=== PATIENT | female | born 1950 | race Caucasian/White ===

== ENCOUNTER 2017-03-03 07:19 | Emergency (ER) | payer OTHER ==
--- NOTE | 2017-03-03 08:00 | ERNOTE ---
<Douglas Aaron - Last Filed: 03/03/17 07:47> Chest Pain/Cardiac HPI Chief Complaint: Palpitations Time Seen by Provider: 03/03/17 07:40 Source: patient Exam Limitations: no limitations Immunizations: IMMUNIZATION HX Immunizations Up to Date Yes Allergies/Adverse Reactions: Allergies cephalexin monohydrate [From Keflex] Allergy (Mild, Verified 03/03/17 07:33) Hives vancomycin Allergy (Mild, Verified 03/03/17 07:33) Hives carbamazepine [From Tegretol] Adverse Reaction (Mild, Verified 03/03/17 07:33) HYPONATREMIA clindamycin HCl [From Cleocin] Adverse Reaction (Mild, Verified 03/03/17 07:33) rash clindamycin palmitate HCl [From Cleocin] Adverse Reaction (Mild, Verified 07:33) rash clindamycin phosphate [From Cleocin] Adverse Reaction (Mild, Verified 03/03/17 07:33) rash gabapentin [From Neurontin] Adverse Reaction (Mild, Verified 03/03/17 07:33) BLURRED VISION lincomycin HCl [From Lincocin] Adverse Reaction (Mild, Verified 03/03/17 07:33) RASH nortriptyline [Nortriptyline] Adverse Reaction (Mild, Verified 03/03/17 07:33) DOESNT WORK paroxetine HCl [From Paxil] Adverse Reaction (Mild, Verified 03/03/17 07:33) NIGHT SWEATS propoxyphene HCl [From Darvon] Adverse Reaction (Mild, Verified 03/03/17 07:33) hallucinations tetracycline [Tetracycline] Adverse Reaction (Mild, Verified 03/03/17 07:33) RASH wheat Adverse Reaction (Mild, Verified 03/03/17 07:33) GI UPSET cisapride monohydrate [From Propulsid] Adverse Reaction (Unknown, Verified 03/03 07:33) DOESNT WORK esomeprazole magnesium [From Nexium] Adverse Reaction (Unknown, Verified 07:33) DOESNT WORK indomethacin Adverse Reaction (Unknown, Verified 03/03/17 07:33) DOESNT WORK Meclofenamate Sod *RETIRED-01/10/13 [From Meclomen] Adverse Reaction (Unknown, Verified 03/03/17 07:33) DOESNT WORK naproxen [From Naprosyn] Adverse Reaction (Unknown, Verified 03/03/17 07:33) DOESNT WORK nifedipine [From Procardia] Adverse Reaction (Unknown, Verified 03/03/17 07:33) DOESNT WORK pregabalin [From Lyrica] Adverse Reaction (Unknown, Verified 03/03/17 07:33) DOESNT WORK propranolol HCl [From Inderal] Adverse Reaction (Unknown, Verified 03/03/17 07: 33) DOESNT WORK nitroglycerin Adverse Reaction (Verified 03/03/17 07:33) DOESNT WORK Home Medications: HOME MEDICATIONS Calcium/Magnesium/Vit D3 [Calcium 500 mg Tablet] 1 each PO BID 07/19/12 [Last Taken Unknown] Folic Acid 2 mg PO DAILY 07/19/12 [Last Taken Unknown] Methadone HCl [Methadone] 5 - 10 mg PO BID 07/19/12 [Last Taken Unknown] SUMAtriptan SUCCINATE [Imitrex] 100 mg PO DAILY PRN 07/19/12 [Last Taken Unknown ] Topiramate [Topamax] 200 mg PO BID 07/19/12 [Last Taken Unknown] Diltiazem HCl [Diltiazem ER] 240 mg PO DAILY 08/26/12 [Last Taken Unknown] Duloxetine HCl [Cymbalta] 60 mg PO BID 08/26/12 [Last Taken Unknown] Trazodone HCl 100 mg PO HS 08/26/12 [Last Taken Unknown] Aspirin [Aspirin Enteric Coated] 325 mg PO DAILY 01/23/15 [Last Taken Unknown] Baclofen 10 mg PO TID 01/23/15 [Last Taken Unknown] Gabapentin [Neurontin] 600 mg PO HS 01/23/15 [Last Taken Unknown] Oxybutynin Chloride [Ditropan] 5 mg PO DAILY 01/23/15 [Last Taken Unknown] Promethazine HCl 5 ml PO QID 01/23/15 [Last Taken Unknown] clonazePAM [Klonopin] 0.5 mg PO HS 01/23/15 [Last Taken Unknown] Gabapentin [Neurontin] 300 mg PO DAILY 03/03/17 [Last Taken Unknown] Narrative: pt has had palpitations for approx. 24 hours. She has taken her pulse as high as 130. Palpitations have been consistent throughout the night and have kept her up. Timing: constant Severity/Quality: moderate, severe Location: left chest Activities at Onset: none Modifying Factors - Improves: Present: nothing Modifying Factors - Worsens: Present: nothing Review of Systems - Review of Systems Constitutional: Present: recent illness - gastroenteritis last week, weakness, fatigue - after episode. Absent: fever EYE: Present: no symptoms reported ENT: Absent: nose congestion, nasal drainage Respiratory: Absent: shortness of breath Cardiology: Present: See HPI. Absent: edema Gastrointestinal/Abdominal: Present: nausea, vomiting, diarrhea - last week x 24 hours Genitourinary: Present: no symptoms reported Musculoskeletal: Present: no symptoms reported Skin: Present: no symptoms reported Neurological: Present: no symptoms reported Endocrine: Absent: excessive sweating Hematologic/Lymphatic: Present: no symptoms reported - Patient's Past Medical History Patient History - Medical: Anemia, Chronic Pain, Fibromyalgia, GERD, Migraines, Osteoporosis, Seizures, Other Patient History - Cardiac/Respiratory: Hyperlipidemia, Other - PSVT Patient History - Cancer: No Hx of Cancer Patient History - Surgical Procedures: Appendectomy, Hysterectomy, T & A Patient History - Other: None - Social History Living Situations: home Abuse History: No History of abuse Psych History: Hx of Anxiety Alcohol Use: none Drug Use: none - Immunizations Immunizations Up to Date: Yes Physical Exam - Physical Exam General Appearance: Present: wd/wn, alert, mild distress, anxious Head Exam: Present: normal inspection, no evidence of injury Ears, Nose, Throat: Present: normal ENT inspection Neck: Present: normal inspection, nontender Respiratory: Present: no respiratory distress, no accessory muscle use, lungs clear Cardiovascular/Chest: Present: no murmur, normal peripheral pulses, tachycardia Gastrointestinal/Abdominal: Present: normal bowel sounds, nontender, nondistended, soft Back Exam: Present: normal inspection, normal range of motion Extremity Exam: Present: normal inspection, non-tender, normal range of motion, no edema Neurological Exam: Present: alert, oriented, normal mood/affect, no motor/ sensory deficits Skin Exam: Present: normal color, warm/dry Lymphatic Exam: Present: no adenopathy ED Progress - Vital Signs Vital Signs: Vital Signs 03/03/17 03/03/17 03/03/17 07:26 07:38 07:40 Temperature 36.6 C Pulse Rate 111 H 111 H 111 H Respiratory 16 16 Rate Blood Pressure 173/98 168/96 O2 Sat by Pulse 99 100 Oximetry - EKG EKG: supraventricular tachycardia - Sinus tachycardia EKG read: Interp. by or - Progress/Reassessment Chief Complaint: Palpitations - Transfer of Care Physician Sign Out: Douglas Aaron Receiving Physician: Tucker Hernandez Pending Results: Labs, X-ray results Expected Disposition: Discharge Departure Clinical Impression: Palpitations - Departure Disposition: Home Follow Up Needed Condition: Stable Instructions: Palpitations, [id number] Additional Instructions: Rest. Fluids. You have an appointment with Dr Jha March 09 at 1: 45. Return here if you change your mind about the additional testing we discussed or if your condition worsens or changes in any way. Referrals: Jarrod Wing MD [Primary Care Provider] - <Tucker Hernandez - Last Filed: 03/03/17 09:42> Chest Pain/Cardiac HPI Immunizations: IMMUNIZATION HX Immunizations Up to Date Yes ED Progress - Results and Orders Patient's Lab Results:: I have reviewed the patient's lab results. - Vital Signs Patient's Vital Signs:: I have reviewed the patient's vital signs. Vital Signs: Vital Signs 03/03/17 03/03/17 03/03/17 07:26 07:38 07:40 Temperature 36.6 C Pulse Rate 111 H 111 H 111 H Respiratory 16 16 Rate Blood Pressure 173/98 168/96 O2 Sat by Pulse 99 100 Oximetry 03/03/17 03/03/17 03/03/17 08:03 08:33 09:20 Temperature Pulse Rate 94 105 H 98 Respiratory 16 12 17 Rate Blood Pressure 163/80 155/85 156/87 O2 Sat by Pulse 100 99 Oximetry - X-Ray X-Ray #1 X-Ray: chest Interpretation: Interp. by me X-ray Comments: I reviewed official x-ray report - Progress/Reassessment Progress Note-Subjective: 03/03/17 09:35 Patient checked out to me by Dr Aaron at shift change pending CXR report and return of some labs. I reviweed labs and CXR report. I spoke with the patient , she was feeling much improved. She states she is under alot of stress and thinks this may be contributing. She relates head pressure, I offered her a CT but she declines this, understands risks and benefits. i was in the room and her HR was 98 and NSR. Not in a fib or SVT. i offerd to add on some additional testing but she declines this and wishes to go home. I spoke with Dr Jha's office and she will be seen sooner in the office. I discussed warning signs and reasons to return as well as the need for close f/u.
[2017-03-03 08:01] LABS: Hematocrit 31.8 % (37.0-47.0); Hemoglobin 10.2 gm/dL (12.5-16.0); Mean Cell Volume 77.8 fl (78-100); Mean Corpuscular Hemoglobin 24.9 pg (27-31); Mean Corpuscular Hgb Conc 32.1 g/dl (32-36); Mean Platelet Volume 8.3 fl (6.0-9.5); Neutrophil # 4.3 K/mm3 (1.3-6.0); Neutrophil % 80.7 % (42-75.0); Platelet Count 293 K/mm3 (150-450); Red Blood Count 4.09 M/mm3 (4.2-5.4); Red Cell Distribution Width 17.5 % (11.5-14.0); White Blood Count 5.3 K/mm3 (4.0-10.5)
[2017-03-03 08:20] LABS: ALT 30 U/L (19-67); AST 34 U/L (0-48); Albumin * 4.4 gm/dl (3.4-5.0); Alkaline Phosphatase * 81 U/L (50-170); Anion Gap 11.7 mmol/L (6.8-13.8); BUN/Creatinine Ratio 13.4 (9.0-21.6); Bilirubin, Total 0.4 mg/dL (0.0-1.1); Blood Urea Nitrogen 13 mg/dL (3-23); Calcium * 8.6 mg/dL (7.9-10.9); Carbon Dioxide 29.2 mmol/L (24-32.6); Chloride 92 mmol/L (97-106); Glucose * 114 mg/dL (70-110); Potassium 3.9 mmol/L (3.4-4.6); Sodium 129 mmol/L (132-142); Total Protein 7.7 gm/dL (6.2-8.2); Troponin I Less than 0.017 ng/ml (0.00-0.10)
[2017-03-03 09:52] VITALS: BP 144/78
== END 2017-03-03 09:53 | disposition home or self-care (01) ==
LOC: ER 07:19
DX: R00.2 Palpitations (principal); G89.29 Other chronic pain; F32.9 Major depressive disorder, single episode, unspecified

== ENCOUNTER 2017-07-23 08:29 | Emergency (ER) | payer MEDICARE, OTHER ==
[2017-07-23 08:41] VITALS: BP 145/72
--- NOTE | 2017-07-23 09:05 | ERNOTE ---
Medical Problem HPI - Narrative Date of Service: 07/23/17 - General Chief Complaint: Laceration Time Seen by Provider: 07/23/17 08:47 Source: patient Exam Limitations: no limitations - Immun/Allergies/Home Medications Immunizations: IMMUNIZATION HX Immunizations Up to Date Yes Allergies/Adverse Reactions: Allergies cephalexin monohydrate [From Keflex] Allergy (Mild, Verified 07/23/17 08:41) Hives vancomycin Allergy (Mild, Verified 07/23/17 08:41) Hives carbamazepine [From Tegretol] Adverse Reaction (Mild, Verified 07/23/17 08:41) HYPONATREMIA clindamycin HCl [From Cleocin] Adverse Reaction (Mild, Verified 07/23/17 08:41) rash clindamycin palmitate HCl [From Cleocin] Adverse Reaction (Mild, Verified 08:41) rash clindamycin phosphate [From Cleocin] Adverse Reaction (Mild, Verified 07/23/17 08:41) rash gabapentin [From Neurontin] Adverse Reaction (Mild, Verified 07/23/17 08:41) BLURRED VISION lincomycin HCl [From Lincocin] Adverse Reaction (Mild, Verified 07/23/17 08:41) RASH nortriptyline [Nortriptyline] Adverse Reaction (Mild, Verified 07/23/17 08:41) DOESNT WORK paroxetine HCl [From Paxil] Adverse Reaction (Mild, Verified 07/23/17 08:41) NIGHT SWEATS propoxyphene HCl [From Darvon] Adverse Reaction (Mild, Verified 07/23/17 08:41) hallucinations tetracycline [Tetracycline] Adverse Reaction (Mild, Verified 07/23/17 08:41) RASH wheat Adverse Reaction (Mild, Verified 07/23/17 08:41) GI UPSET cisapride monohydrate [From Propulsid] Adverse Reaction (Unknown, Verified 07/23 08:41) DOESNT WORK esomeprazole magnesium [From Nexium] Adverse Reaction (Unknown, Verified 08:41) DOESNT WORK indomethacin Adverse Reaction (Unknown, Verified 07/23/17 08:41) DOESNT WORK Meclofenamate Sod *RETIRED-01/10/13 [From Meclomen] Adverse Reaction (Unknown, Verified 07/23/17 08:41) DOESNT WORK naproxen [From Naprosyn] Adverse Reaction (Unknown, Verified 07/23/17 08:41) DOESNT WORK nifedipine [From Procardia] Adverse Reaction (Unknown, Verified 07/23/17 08:41) DOESNT WORK pregabalin [From Lyrica] Adverse Reaction (Unknown, Verified 07/23/17 08:41) DOESNT WORK propranolol HCl [From Inderal] Adverse Reaction (Unknown, Verified 07/23/17 08: 41) DOESNT WORK nitroglycerin Adverse Reaction (Verified 07/23/17 08:41) DOESNT WORK Home Medications: HOME MEDICATIONS Calcium/Magnesium/Vit D3 [Calcium 500 mg Tablet] 1 each PO BID 07/19/12 [Last Taken Unknown] Folic Acid 2 mg PO DAILY 07/19/12 [Last Taken Unknown] Methadone HCl [Methadone] 5 - 10 mg PO BID 07/19/12 [Last Taken Unknown] SUMAtriptan SUCCINATE [Imitrex] 100 mg PO DAILY PRN 07/19/12 [Last Taken Unknown ] Topiramate [Topamax] 200 mg PO BID 07/19/12 [Last Taken Unknown] Diltiazem HCl [Diltiazem ER] 240 mg PO DAILY 08/26/12 [Last Taken Unknown] Duloxetine HCl [Cymbalta] 60 mg PO BID 08/26/12 [Last Taken Unknown] Trazodone HCl 100 mg PO HS 08/26/12 [Last Taken Unknown] Aspirin [Aspirin Enteric Coated] 325 mg PO DAILY 01/23/15 [Last Taken Unknown] Baclofen 10 mg PO TID 01/23/15 [Last Taken Unknown] Gabapentin [Neurontin] 600 mg PO HS 01/23/15 [Last Taken Unknown] Oxybutynin Chloride [Ditropan] 5 mg PO DAILY 01/23/15 [Last Taken Unknown] Promethazine HCl 5 ml PO QID 01/23/15 [Last Taken Unknown] clonazePAM [Klonopin] 0.5 mg PO HS 01/23/15 [Last Taken Unknown] Gabapentin [Neurontin] 300 mg PO DAILY 03/03/17 [Last Taken Unknown] Doxycycline Hyclate [Morgidox] 100 mg PO BID #20 capsule 07/23/17 [Last Taken Unknown] - History of Present History Narrative: 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 Severity: mild Modifying Factors - (Improves): Present: other - nothing Modifying Factors - (Worsens): Present: other - nothing Review of Systems - Narrative Narrative: unremarkable - Review of Systems Constitutional: Present: See HPI EYE: Present: see HPI, other - laceration above right eye ENT: Present: no symptoms reported Respiratory: Present: no symptoms reported Cardiology: Present: no symptoms reported Gastrointestinal/Abdominal: Present: no symptoms reported Genitourinary: Present: no symptoms reported Musculoskeletal: Present: no symptoms reported Skin: Present: no symptoms reported Neurological: Present: no symptoms reported Endocrine: Present: no symptoms reported Hematologic/Lymphatic: Present: no symptoms reported Psych: Present: no symptoms reported All Other Systems: All systems neg except as marked - Narrative Narrative: unremarkable - Patient's Past Medical History Patient History - Medical: Anemia, Chronic Pain, Fibromyalgia, GERD, Migraines, Osteoporosis, Seizures, Other Patient History - Cardiac/Respiratory: Hyperlipidemia, Other Patient History - Cancer: No Hx of Cancer Patient History - Surgical Procedures: Appendectomy, Hysterectomy, T & A Patient History - Other: None LMP (females 10-50): Menopausal - Family History Family History:: no untoward family reactions to anesthesia, no familial bleeding tendencies, no family history of clotting disorders, no family history of premature - Social History Living Situations: home Abuse History: No History of abuse Psych History: Hx of Anxiety Does anyone smoke in the home?: No Have you smoked in the past 12 months: No Do you dip or chew tobacco: No Patient requests Smoking Cessation Consult: No Initiate information on Smoking Cessation: No Alcohol Use: none Drug Use: none - Immunizations Immunizations Up to Date: Yes Physical Exam - Physical Exam General Appearance: Present: mild distress, anxious Head Exam: Present: normal inspection, no evidence of injury Eye Exam: Other: right - 2.5 cm laceration abobe right eye, good approximation Ears, Nose, Throat: Present: normal ENT inspection Neck: Present: normal inspection, nontender Respiratory: Present: no respiratory distress, normal breath sounds, no accessory muscle use, chest nontender, lungs clear Cardiovascular/Chest: Present: regular rate, rhythm, no murmur, normal peripheral pulses Gastrointestinal/Abdominal: Present: normal bowel sounds, nontender, nondistended, soft, no organomegaly Back Exam: Present: normal inspection, normal range of motion, no CVA tenderness , no vertebral tenderness Extremity Exam: Present: normal inspection, non-tender, normal range of motion, no edema Neurological Exam: Present: alert, oriented, normal mood/affect, no motor/ sensory deficits Skin Exam: Present: normal color, warm/dry Lymphatic Exam: Present: no adenopathy ED Progress - Date and Time Seen: Date and Time: 07/23/17 09:01 condition unchanged, to heal by secondary intention - Vital Signs Patient's Vital Signs:: I have reviewed the patient's vital signs. Vital Signs: Vital Signs 07/23/17 08:37 Temperature 36.5 C Pulse Rate 96 Respiratory 12 Rate Blood Pressure 145/72 O2 Sat by Pulse 99 Oximetry - Progress/Reassessment Chief Complaint: Laceration Progress:: Unchanged - Transfer of Care Expected Disposition: Discharge Plan - Plan Plan: to be discharged Departure Clinical Impression: Laceration of periorbital area - Departure Disposition: Home self-care Condition: Fair Instructions: Facial Laceration Referrals: Jarrod Wing MD [Primary Care Provider] - Prescriptions: Doxycycline Hyclate [Morgidox] 100 mg PO BID #20 capsule
== END 2017-07-23 09:16 | disposition home or self-care (01) ==
LOC: ER 08:29
DX: S01.101A Unspecified open wound of right eyelid and periocular area, initial encounter (principal); D64.9 Anemia, unspecified; G89.29 Other chronic pain; K21.9 Gastro-esophageal reflux disease without esophagitis; E78.5 Hyperlipidemia, unspecified; G40.909 Epilepsy, unspecified, not intractable, without status epilepticus; X58.XXXA Exposure to other specified factors, initial encounter